=== PATIENT | male | born 1955 | race Caucasian/White ===

== ENCOUNTER 2020-04-27 21:42 | Inpatient (IN) | payer MEDICAID, OTHER ==
[2020-04-27] MEDS ORDERED: Diltiazem 125 MG/25 ML ONE (21:54)
[2020-04-27] MEDS ORDERED: Albuterol 200 PUFF (6.7GM INHALER) ONE (22:12)
[2020-04-27] MEDS ORDERED: Ketamine 500 mg/500 ml in NS IVPB SCH (22:15)
[2020-04-27 22:32] LABS: #Lymphocytes 1.2 thou/uL (1.20-3.40); #Monocytes 0.9 thou/uL (0.11-0.59); %Eosinophils 0.2 % (0.0-10.0); %Lymphocytes 6.4 % (21.0-51.0); %Monocytes 5.1 % (0.0-10.0); %Neutrophils 88.2 % (42.0-75.0); Hemoglobin 13.2 g/dL (14.0-18.0); Mean Corpuscular HGB CONC 32.3 g/dL (32.0-36.0); Mean Corpuscular Hemoglobin 31.5 pg (27.0-31.0); Mean Corpuscular Volume 97.4 fL (78.0-98.0); Mean Platelet Volume 6.9 fL (7.4-10.4); Platelet Count 180 thou/uL (130-400); RBC Distribution Width 12.3 % (11.5-14.5); Red Blood Cell (RBC) Count 4.18 mill/uL (4.70-6.10); White Blood Cell (WBC) Count 18.1 thou/uL (4.8-10.8)
[2020-04-27 22:39] LABS: INR-International Normal Ratio 0.9; Prothrombin Time 12.8 sec (12.0-14.7)
[2020-04-27] MEDS ORDERED: diphenhydrAMINE 25 MG CAP PO PRN (22:39)
[2020-04-27] MEDS ORDERED: fentaNYL Citrate/PF 2,000 MCG in Sodium Chloride 0.9% 60 ML IV PRN (22:39)
[2020-04-27] MEDS ORDERED: Naloxone HCl 0.4 mg/ml Vial IV PRN (22:39)
[2020-04-27] MEDS ORDERED: diphenhydrAMINE 50 MG/ML VIAL IM PRN (22:39)
[2020-04-27] MEDS ORDERED: Promethazine HCl 25 MG/ML VIAL IM PRN (22:39)
[2020-04-27] MEDS ORDERED: Zolpidem Tartrate 5 MG TAB PO PRN (22:39)
[2020-04-27] MEDS ORDERED: diphenhydrAMINE 50 MG/ML VIAL IVP PRN (22:39)
[2020-04-27] MEDS ORDERED: Ondansetron PF 4 MG/2 ML Vial IVP PRN (22:39)
[2020-04-27] MEDS ORDERED: Ketorolac Tromethamine 30 MG/ML VIAL IVP PRN (22:39)
[2020-04-27 22:40] LABS: PTT 43.7 sec (22.9-36.1)
[2020-04-27] MEDS ORDERED: Communication Order-Pharmacy FS SCH (22:45)
[2020-04-27 22:55] LABS: ALT (SGPT) 30 U/L (8-55); AST (SGOT) 26 U/L (5-34); Albumin 3.8 g/dL (3.4-4.8); Alkaline Phosphatase 108 U/L (40-110); Anion Gap 14 mmol/L (10-20); BUN (Urea Nitrogen) 18 mg/dL (8.4-25.7); Bilirubin, Total 0.6 mg/dL (0.2-1.2); Calc. Creatinine Clearance 0 mL/min (70-130); Calcium 8.5 mg/dL (7.8-10.44); Carbon Dioxide 26 mmol/L (23-31); Chloride 104 mmol/L (98-107); Globulin 2.5 g/dL (2.4-3.5); Glucose 87 mg/dL (80-115); Protein, Total 6.3 g/dL (5.8-8.1); Sodium 139 mmol/L (136-145)
[2020-04-28] MEDS ORDERED: Promethazine HCl 12.5 MG in Sodium Chloride 0.9% 50 ML IVPB PRN (01:07)
[2020-04-28] MEDS ORDERED: Labetalol HCl 100 MG/20 ML VIAL SLOW IVP PRN (01:07)
[2020-04-28] MEDS ORDERED: Ondansetron PF 4 MG/2 ML Vial IVP PRN (01:07)
[2020-04-28] MEDS ORDERED: Guaifenesin DM 100-10/5 ML UDCUP PO PRN (01:07)
[2020-04-28] MEDS ORDERED: Acetaminophen 325 MG TAB PO PRN (01:07)
[2020-04-28] MEDS ORDERED: hydrALAZINE 20 MG/ML VIAL SLOW IVP PRN (01:07)
[2020-04-28] MEDS ORDERED: Azithromycin 500 MG in Syringe 0 ML IVPB ONE (01:07)
[2020-04-28] MEDS ORDERED: Morphine 2 MG/ML VIAL SLOW IVP PRN (01:07)
[2020-04-28] MEDS ORDERED: cloNIDine 0.1 MG TAB PO PRN (01:07)
[2020-04-28] MEDS ORDERED: Haloperidol Lactate 5 MG/ML VIAL SLOW IVP PRN (01:09)
[2020-04-28] MEDS ORDERED: Lorazepam 2 MG/ML VIAL SLOW IVP PRN (01:09)
[2020-04-28] MEDS ORDERED: Electrolyte Replacement Protocol 1 EACH FS SCH (01:15)
[2020-04-28] MEDS ORDERED: Diltiazem 125 MG in Sodium Chloride 0.9% 100 ML IVPB SCH ×2 (01:15→10:19)
[2020-04-28] MEDS ORDERED: Heparin 25,000 units/D5W 500 ML IVPB SCH (01:15)
[2020-04-28] MEDS ORDERED: Electrolyte Replacement Protocol FS PRN (01:30)
[2020-04-28 01:48] VITALS: BMI 16.4
[2020-04-28] MEDS ORDERED: Azithromycin 500 MG in Sodium Chloride 0.9% 250 ML 250 ML IVPB SCH (02:00)
[2020-04-28 02:11] LABS: Band 25 % (5-11); Hemoglobin 13.6 g/dL (14.0-18.0); Lymphocytes 10 % (21-51); MDiff Complete? YES; Mean Corpuscular HGB CONC 32.2 g/dL (32.0-36.0); Mean Corpuscular Hemoglobin 31.5 pg (27.0-31.0); Mean Corpuscular Volume 97.7 fL (78.0-98.0); Mean Platelet Volume 6.8 fL (7.4-10.4); Monocytes 3 % (0-10); Neutrophil 62 % (42-75); Platelet Count 208 thou/uL (130-400); Platelet Morphology Comment Appears Adequate; RBC Distribution Width 12.3 % (11.5-14.5); Red Blood Cell (RBC) Count 4.31 mill/uL (4.70-6.10); White Blood Cell (WBC) Count 20.5 thou/uL (4.8-10.8)
[2020-04-28] MEDS: Morphine 4 MG/ML VIAL SLOW IVP PRN ×3 (02:18→17:48)
[2020-04-28] MEDS: Heparin 10,000 UNITS/ 10 ML VIAL SLOW IVP SCH ×3 (02:21→16:51)
[2020-04-28] MEDS: methylPREDNISolone Sod Succ 40 MG VIAL IVP SCH ×3 (02:25→16:56)
[2020-04-28 02:39] LABS: Anion Gap 19 mmol/L (10-20); BUN (Urea Nitrogen) 20 mg/dL (8.4-25.7); Calc. Creatinine Clearance 79 mL/min (70-130); Carbon Dioxide 22 mmol/L (23-31); Chloride 103 mmol/L (98-107); Potassium 4.9 mmol/L (3.5-5.1); Sodium 139 mmol/L (136-145)
[2020-04-28 02:40] LABS: Calcium 8.8 mg/dL (7.8-10.44); Glucose 84 mg/dL (80-115)
[2020-04-28] MEDS: HYDROcodone/Acetaminophen 5/325 mg Tablet PO PRN ×3 (02:47→16:56)
[2020-04-28] MEDS ORDERED: Aspirin 325 mg Enteric Coated Tablet PO SCH (03:15)
[2020-04-28] MEDS: Mometasone 100 MCG/Formoterol 5 MCG 120 PUFF INHALER INH SCH ×2 (07:21→19:22)
[2020-04-28 08:38] LABS: SARS-CoV-2 PCR by NAA Not Detected (NotDetected)
[2020-04-28] MEDS: Polyethylene Glycol 3350 17 GM Packet PO SCH (09:10)
[2020-04-28] MEDS: Famotidine 20 MG TAB PO SCH ×2 (09:19→20:46)
[2020-04-28] MEDS: Aspirin 325 mg Enteric Coated Tablet PO SCH (09:19)
[2020-04-28] MEDS ORDERED: Iopamidol 370 76% 100 ML VIAL ONE (10:32)
[2020-04-28] MEDS: cefTRIAXone\\ROCEPHIN 2 GM in Sodium Chloride 0.9% 100 ML IVPB SCH (17:48)
[2020-04-28 18:34] LABS: Amphetamine Not Detected (NotDetected); Barbiturates Screen Not Detected (NotDetected); Benzodiazepine Screen Not Detected (NotDetected); Cocaine Metabolite Screen Not Detected (NotDetected); Medtox Control Line Valid? VALID (VALID); Medtox Reader # READER 4; Methadone Not Detected (NotDetected); Methamphetamine Not Detected (NotDetected); Opiate Screen Detected (NotDetected); Oxycodone Screen Not Detected (NotDetected); Phencyclidine (PCP) Not Detected (NotDetected); THC/Cannabinoid Screen Not Detected (NotDetected); Tricyclic Screen Not Detected (NotDetected)
[2020-04-28] MEDS: Docusate 100 MG CAP PO SCH (20:46)
[2020-04-28] MEDS: Morphine IR Tab 15 MG TAB PO SCH (20:47)
[2020-04-29] MEDS: methylPREDNISolone Sod Succ 40 MG VIAL IVP SCH ×3 (03:45→17:47)
[2020-04-29 04:54] LABS: #Lymphocytes 0.7 thou/uL (1.20-3.40); #Monocytes 0.7 thou/uL (0.11-0.59); #Neutrophils 11.3 thou/uL (1.40-6.50); %Eosinophils 0.1 % (0.0-10.0); %Lymphocytes 5.5 % (21.0-51.0); %Monocytes 5.1 % (0.0-10.0); %Neutrophils 89.3 % (42.0-75.0); Hemoglobin 12.9 g/dL (14.0-18.0); Mean Corpuscular HGB CONC 32.7 g/dL (32.0-36.0); Mean Corpuscular Hemoglobin 31.6 pg (27.0-31.0); Mean Corpuscular Volume 96.6 fL (78.0-98.0); Mean Platelet Volume 7.3 fL (7.4-10.4); Platelet Count 156 thou/uL (130-400); RBC Distribution Width 12.2 % (11.5-14.5); Red Blood Cell (RBC) Count 4.08 mill/uL (4.70-6.10); White Blood Cell (WBC) Count 12.6 thou/uL (4.8-10.8)
[2020-04-29 05:09] LABS: Anion Gap 13 mmol/L (10-20); BUN (Urea Nitrogen) 18 mg/dL (8.4-25.7); Calc. Creatinine Clearance 92 mL/min (70-130); Calcium 8.5 mg/dL (7.8-10.44); Carbon Dioxide 31 mmol/L (23-31); Chloride 98 mmol/L (98-107); Glucose 140 mg/dL (80-115); Potassium 3.8 mmol/L (3.5-5.1); Sodium 138 mmol/L (136-145)
[2020-04-29] MEDS: Morphine 4 MG/ML VIAL SLOW IVP PRN (06:32)
[2020-04-29] MEDS: Mometasone 100 MCG/Formoterol 5 MCG 120 PUFF INHALER INH SCH ×2 (07:23→19:06)
[2020-04-29] MEDS ORDERED: Heparin 10,000 UNITS/ 10 ML VIAL ONE ×2 (08:06→13:48)
[2020-04-29] MEDS ORDERED: Heparin 5,000 UNITS/ML VIAL ONE (08:06)
[2020-04-29] MEDS ORDERED: Protamine Sulfate 50 MG/5 ML VIAL ONE (08:06)
[2020-04-29] MEDS ORDERED: Diltiazem 125 MG in Sodium Chloride 0.9% 100 ML IVPB SCH (08:32)
[2020-04-29] MEDS ORDERED: SUGAMMADEX SODIUM 200 MG/2 ML VIAL ONE (08:55)
[2020-04-29] MEDS ORDERED: Midazolam HCl 2 mg/2 ml Vial ONE (08:55)
[2020-04-29] MEDS ORDERED: Fentanyl 100 MCG/2 ML VIAL ONE ×4 (08:55→15:43)
[2020-04-29] MEDS ORDERED: Azithromycin 250 MG TAB PO SCH (09:00)
[2020-04-29] MEDS ORDERED: Ketorolac Tromethamine 30 MG/ML VIAL ONE (09:15)
[2020-04-29] MEDS ORDERED: Lidocaine 1% PF 5 ML VIAL ONE (09:15)
[2020-04-29] MEDS ORDERED: Dexamethasone 20 MG/5 ML VIAL ONE (09:15)
[2020-04-29] MEDS ORDERED: Rocuronium Bromide 10 MG/ML (10ML VIAL) ONE (09:15)
[2020-04-29] MEDS ORDERED: Ondansetron PF 4 MG/2 ML Vial ONE (09:15)
[2020-04-29] MEDS ORDERED: PROPOFOL 200 MG/20 ML VIAL ONE (09:15)
[2020-04-29] MEDS ORDERED: CEFAZOLIN 2 GM in Premix Bag 1 BAG IVPB SCH (09:15)
[2020-04-29] MEDS ORDERED: Ondansetron HCl/PF 4 MG/2 ML Vial IVP PRN ×2 (09:26→14:17)
[2020-04-29] MEDS: Morphine IR Tab 15 MG TAB PO SCH ×3 (10:55→20:14)
[2020-04-29] MEDS: Famotidine 20 MG TAB PO SCH ×2 (10:55→20:14)
[2020-04-29] MEDS: Docusate 100 MG CAP PO SCH ×2 (10:55→20:14)
[2020-04-29] MEDS: Aspirin 325 mg Enteric Coated Tablet PO SCH (10:55)
[2020-04-29] MEDS: Polyethylene Glycol 3350 17 GM Packet PO SCH (10:55)
[2020-04-29] MEDS ORDERED: CEFAZOLIN 1 GM VIAL ONE (12:17)
[2020-04-29] MEDS ORDERED: HYDROcodone/Acetaminophen 5/325 mg Tablet PO PRN (15:18)
[2020-04-29] MEDS ORDERED: Ondansetron PF 4 MG/2 ML Vial IVP PRN (15:18)
[2020-04-29] MEDS ORDERED: Acetaminophen 325 MG TAB PO PRN (15:18)
[2020-04-29] MEDS: cefTRIAXone\\ROCEPHIN 2 GM in Sodium Chloride 0.9% 100 ML IVPB SCH (16:56)
[2020-04-30] MEDS: methylPREDNISolone Sod Succ 40 MG VIAL IVP SCH ×3 (04:22→21:48)
[2020-04-30 04:39] LABS: #Lymphocytes 0.4 thou/uL (1.20-3.40); #Monocytes 0.8 thou/uL (0.11-0.59); #Neutrophils 15.1 thou/uL (1.40-6.50); %Eosinophils 0.1 % (0.0-10.0); %Lymphocytes 2.5 % (21.0-51.0); %Monocytes 4.8 % (0.0-10.0); %Neutrophils 92.7 % (42.0-75.0); Hemoglobin 11.7 g/dL (14.0-18.0); Mean Corpuscular HGB CONC 32.7 g/dL (32.0-36.0); Mean Corpuscular Hemoglobin 31.8 pg (27.0-31.0); Mean Corpuscular Volume 97.3 fL (78.0-98.0); Mean Platelet Volume 7.2 fL (7.4-10.4); Platelet Count 129 thou/uL (130-400); RBC Distribution Width 12.1 % (11.5-14.5); Red Blood Cell (RBC) Count 3.67 mill/uL (4.70-6.10); White Blood Cell (WBC) Count 16.2 thou/uL (4.8-10.8)
[2020-04-30 05:10] LABS: Anion Gap 11 mmol/L (10-20); BUN (Urea Nitrogen) 27 mg/dL (8.4-25.7); Calc. Creatinine Clearance 80 mL/min (70-130); Calcium 8.2 mg/dL (7.8-10.44); Carbon Dioxide 31 mmol/L (23-31); Chloride 101 mmol/L (98-107); Glucose 123 mg/dL (80-115); Potassium 4.5 mmol/L (3.5-5.1); Sodium 138 mmol/L (136-145)
[2020-04-30] MEDS: HYDROcodone/Acetaminophen 5/325 mg Tablet PO PRN ×3 (05:10→16:51)
[2020-04-30] MEDS: Mometasone 100 MCG/Formoterol 5 MCG 120 PUFF INHALER INH SCH ×2 (08:49→18:24)
[2020-04-30] MEDS: Morphine IR Tab 15 MG TAB PO SCH ×3 (09:10→21:44)
[2020-04-30] MEDS: Famotidine 20 MG TAB PO SCH ×2 (09:10→21:38)
[2020-04-30] MEDS: Sodium Chloride 0.9% 1,000 ML IV SCH ×2 (09:10→21:51)
[2020-04-30] MEDS: Aspirin Chewable 81 MG TAB PO SCH (09:10)
[2020-04-30] MEDS: Docusate 100 MG CAP PO SCH ×2 (09:10→21:44)
[2020-04-30] MEDS: Polyethylene Glycol 3350 17 GM Packet PO SCH (09:11)
[2020-04-30] MEDS: cefTRIAXone\\ROCEPHIN 2 GM in Sodium Chloride 0.9% 100 ML IVPB SCH (16:51)
[2020-05-01] MEDS: Sodium Chloride 0.9% 1,000 ML IV SCH (00:30)
[2020-05-01] MEDS: methylPREDNISolone Sod Succ 40 MG VIAL IVP SCH ×2 (06:21→14:06)
[2020-05-01 06:39] LABS: Anion Gap 12 mmol/L (10-20); BUN (Urea Nitrogen) 27 mg/dL (8.4-25.7); Calc. Creatinine Clearance 85 mL/min (70-130); Calcium 7.9 mg/dL (7.8-10.44); Carbon Dioxide 32 mmol/L (23-31); Chloride 100 mmol/L (98-107); Glucose 150 mg/dL (80-115); Magnesium 1.8 mg/dL (1.6-2.6); Potassium 4.1 mmol/L (3.5-5.1); Sodium 140 mmol/L (136-145)
[2020-05-01 08:11] LABS: Band 11 % (5-11); Hemoglobin 11.3 g/dL (14.0-18.0); Lymphocytes 4 % (21-51); MDiff Complete? YES; Mean Corpuscular HGB CONC 32.4 g/dL (32.0-36.0); Mean Corpuscular Hemoglobin 31.4 pg (27.0-31.0); Mean Corpuscular Volume 96.9 fL (78.0-98.0); Monocytes 6 % (0-10); Neutrophil 79 % (42-75); Platelet Count 118 thou/uL (130-400); Platelet Morphology Comment Appears Decreased; RBC Distribution Width 11.9 % (11.5-14.5); Red Blood Cell (RBC) Count 3.61 mill/uL (4.70-6.10); White Blood Cell (WBC) Count 16.6 thou/uL (4.8-10.8)
[2020-05-01] MEDS: Aspirin Chewable 81 MG TAB PO SCH (08:31)
[2020-05-01] MEDS: Famotidine 20 MG TAB PO SCH ×2 (08:31→21:20)
[2020-05-01] MEDS: Morphine IR Tab 15 MG TAB PO SCH ×3 (08:31→21:18)
[2020-05-01] MEDS: Docusate 100 MG CAP PO SCH ×2 (08:32→21:17)
[2020-05-01] MEDS: Polyethylene Glycol 3350 17 GM Packet PO SCH (08:32)
[2020-05-01] MEDS: Mometasone 100 MCG/Formoterol 5 MCG 120 PUFF INHALER INH SCH ×2 (10:09→19:13)
[2020-05-01] MEDS ORDERED: Magnesium 2 GM/50 ML 2 GM in Premix Bag 1 BAG IVPB SCH (11:45)
[2020-05-01] MEDS: Cefdinir 300 MG CAP PO SCH (21:17)
[2020-05-02] MEDS: Aspirin Chewable 81 MG TAB PO SCH (08:56)
[2020-05-02] MEDS: Docusate 100 MG CAP PO SCH ×2 (08:56→21:52)
[2020-05-02] MEDS: Cefdinir 300 MG CAP PO SCH ×2 (08:56→21:50)
[2020-05-02] MEDS: predniSONE 20 MG TAB PO SCH (08:56)
[2020-05-02] MEDS: Famotidine 20 MG TAB PO SCH ×2 (08:56→21:50)
[2020-05-02] MEDS: Polyethylene Glycol 3350 17 GM Packet PO SCH (08:57)
[2020-05-02] MEDS: Morphine IR Tab 15 MG TAB PO SCH ×3 (09:52→21:50)
[2020-05-02] MEDS: Mometasone 100 MCG/Formoterol 5 MCG 120 PUFF INHALER INH SCH ×2 (13:19→18:40)
[2020-05-03] MEDS: Morphine 4 MG/ML VIAL SLOW IVP PRN (04:29)
[2020-05-03] MEDS: Mometasone 100 MCG/Formoterol 5 MCG 120 PUFF INHALER INH SCH (08:31)
[2020-05-03] MEDS: Docusate 100 MG CAP PO SCH (09:33)
[2020-05-03] MEDS: Morphine IR Tab 15 MG TAB PO SCH ×2 (09:33→14:54)
[2020-05-03] MEDS: Aspirin Chewable 81 MG TAB PO SCH (09:34)
[2020-05-03] MEDS: Cefdinir 300 MG CAP PO SCH (09:34)
[2020-05-03] MEDS: Polyethylene Glycol 3350 17 GM Packet PO SCH (09:34)
[2020-05-03] MEDS: Famotidine 20 MG TAB PO SCH (09:34)
[2020-05-03] MEDS: predniSONE 20 MG TAB PO SCH (09:37)
[2020-05-03] MEDS ORDERED: Losartan 25 MG TAB PO SCH (10:00)
[2020-05-03 16:49] VITALS: BP 156/80; TEMP 98.5
[2020-05-04] MEDS ORDERED: Losartan 25 MG TAB PO SCH (09:00)
[2020-05-04 15:39] LABS: Actual Bicarbonate (HCO3a) 27.1 mEq/L (22-28); Analyzer IN Cardio OR; Base Excess (BEa) 3.1 mEq/L (-2.0 to +3.0); CO2 Tension 39.2 mmHg (35.0-45.0); Calcium, Ionized (arterial) 1.06 mmol/L (1.12-1.30); Carboxyhemoglobin (COHb) 0.3 gm% (0.0-3.0); Hemoglobin (Hb) 10.3 g/dL (14.0-18.0); O2 Tension (PaO2), arterial 283.8 mmHg (> 80.0); Potassium - ABG Lab 3.69 mmol/L (3.70-5.30); Puncture Site Arterial Line; pH, Arterial 7.46 (7.35-7.45)
== END 2020-05-03 16:20 | disposition home or self-care (01) | DRG 252 ==
LOC: ERS 21:42 → 2NO 22:33 → OBSVTOIN 04-28 16:33
PROVIDERS: ADMIT Internal Medicine; ATTEND Internal Medicine
PROC: 041L0JH Bypass Left Femoral Artery to Right Femoral Artery with Synthetic Substitute, Open Approach (ICD-10-PCS; principal; 2020-04-29)
PROC: 06BQ0ZZ Excision of Left Saphenous Vein, Open Approach (ICD-10-PCS; 2020-04-29)
PROC: 06BP0ZZ Excision of Right Saphenous Vein, Open Approach (ICD-10-PCS; 2020-04-29)
PROC: 04CL0ZZ Extirpation of Matter from Left Femoral Artery, Open Approach (ICD-10-PCS; 2020-04-29)
PROC: 04UL0KZ Supplement Left Femoral Artery with Nonautologous Tissue Substitute, Open Approach (ICD-10-PCS; 2020-04-29)
DX: T82.858A Stenosis of other vascular prosthetic devices, implants and grafts, initial encounter (principal); J96.01 Acute respiratory failure with hypoxia; I70.262 Atherosclerosis of native arteries of extremities with gangrene, left leg; Z68.1 Body mass index [BMI] 19.9 or less, adult; E44.0 Moderate protein-calorie malnutrition; I48.4 Atypical atrial flutter; Z20.822 Contact with and (suspected) exposure to COVID-19; Y83.2 Surgical operation with anastomosis, bypass or graft as the cause of abnormal reaction of the patient, or of later complication, without mention of misadventure at the time of the procedure; F17.210 Nicotine dependence, cigarettes, uncomplicated; F15.10 Other stimulant abuse, uncomplicated; I48.91 Unspecified atrial fibrillation; J43.9 Emphysema, unspecified; R62.7 Adult failure to thrive; G89.4 Chronic pain syndrome; Z28.21 Immunization not carried out because of patient refusal; Z91.14 Patient's other noncompliance with medication regimen; Z95.820 Peripheral vascular angioplasty status with implants and grafts; Z79.899 Other long term (current) drug therapy; Z79.82 Long term (current) use of aspirin; Z79.52 Long term (current) use of systemic steroids
CPT/HCPCS: 36415; 71045; 75635; 80048; 80053; 80306; 82805; 83605; 83735; 83880; 84484; 85025; 85610; 85730; 86850; 86900; 86901; 87635; 93005; 93306; 94640; 94664; 96365; 96366; 96375; 96376; G0378; J0456; J0690; J0696; J1100; J1644; J1885; J2250; J2270; J2405; J2704; J2720; J2920; J3010; J3475; J3490; J7030; J7050; J7512; J7620; Q9967; U0003; U0005